=== PATIENT | male | born 1935 | race Caucasian/White ===

== ENCOUNTER 2021-11-04 12:23 | Outpatient (CLI) | payer OTHER | END 2021-11-04 12:24 | disposition home or self-care (01) | LOC: RAD 12:23 | PROVIDERS: ATTEND Internal Medicine Critical Care Medicine | DX: R06.00 Dyspnea, unspecified (principal) | CPT/HCPCS: 71046 ==

== ENCOUNTER 2022-03-23 09:39 | Outpatient (CLI) | payer OTHER | END 2022-03-23 09:40 | disposition home or self-care (01) | LOC: RAD 09:39 | PROVIDERS: ATTEND Internal Medicine Critical Care Medicine | DX: R06.00 Dyspnea, unspecified (principal) | CPT/HCPCS: 71046 ==

== ENCOUNTER 2024-02-12 09:26 | Outpatient (CLI) | payer OTHER | END 2024-02-12 09:27 | disposition home or self-care (01) | LOC: RAD 09:26 | PROVIDERS: ATTEND Internal Medicine Critical Care Medicine | DX: R06.00 Dyspnea, unspecified (principal) | CPT/HCPCS: 71046 ==